=== PATIENT | female | born 1965 | race Hispanic/Latino ===

== ENCOUNTER → 2017-02-16 | Outpatient (CLI) | payer BC ==
--- NOTE | 2017-02-16 14:01 | Diagnostic Imaging Report ---
Bilateral screening mammogram 2D views with tomosynthesis The current study was also evaluated with a Computer Aided Detection (CAD) system. INDICATION: Screening. No current complaints stated on the questionnaire. COMPARISON: 02/12/2015. FINDINGS: The breasts are composed of heterogeneously dense parenchyma which may decrease mammographic sensitivity. Bilateral retropectoral implants are seen. There are punctate calcifications noted. Circumscribed oval asymmetry along the upper aspect of the left breast is again seen without change from 2013 suggestive of benign etiology. Tomographic views are suggestive of underlying fibroglandular tissue. Allowing for technique and positional differences, no suspicious change is seen. IMPRESSION: No significant change. ACR BI-RADS Category 2: Benign findings. Result letter will be mailed to the patient. Note: At least 10% of breast cancer is not imaged by mammography. Dictated on workstation # [id number]
== END ==
LOC: RAD 09:59
PROVIDERS: ATTEND Nurse Practitioner
DX: Z12.31 Encounter for screening mammogram for malignant neoplasm of breast (principal)
CPT/HCPCS: 77067

== ENCOUNTER 2017-10-22 05:58 | Outpatient (CLI) | payer BC ==
[~2017-10-22] VITALS: Ht 167.6 cm; Wt 90.7 kg
[2017-10-22] MEDS ORDERED: LEVO50TA6 PO (12:09)
== END 2017-10-22 12:13 | disposition home or self-care (01) ==
LOC: PREOP 05:58
PROVIDERS: ATTEND Surgery
DX: Z01.818 Encounter for other preprocedural examination (principal)

== ENCOUNTER → 2018-04-12 | Outpatient (CLI) | payer BC ==
[~2018-04-12] MED LIST: LEVO50TA6 PO
--- NOTE | 2018-04-12 15:46 | Diagnostic Imaging Report ---
INDICATION: Routine screening. COMPARISON: Prior mammogram from 02/16/2017 and 02/12/2015. EXAMINATION: 2D and 3D bilateral screening mammography was performed with CAD. The current study was also evaluated with a Computer Aided Detection (CAD) system. FINDINGS: Both breasts are heterogeneously dense, limiting the sensitivity of mammography. Bilateral breast implants are again noted. Implant contours appear to be stable. There are benign calcifications, bilaterally. Benign nodular densities in the upper left breast appear stable. No new mass or malignant appearing microcalcifications are seen. The axillae are unremarkable. IMPRESSION: No mammographic features suspicious for malignancy are identified. ACR BI-RADS Category 2: Benign findings. Result letter will be mailed to the patient. Note: At least 10% of breast cancer is not imaged by mammography. Dictated by: Dictated on workstation # [id number]
== END ==
LOC: RAD 13:19
PROVIDERS: ATTEND Nurse Practitioner
DX: Z12.31 Encounter for screening mammogram for malignant neoplasm of breast (principal)
CPT/HCPCS: 77067

== ENCOUNTER → 2019-04-10 | Outpatient (CLI) | payer BC ==
[2019-04-13 09:43] VITALS: BP 113/72
--- NOTE | 2019-04-13 09:43 | Cardiology Stress Test Report ---
Stress Test Report Date of Procedure/Referring: Date of Procedure: Apr 13, 2019 PCP Emily Gomez MD Admitting Physician Dominik Powell DO Indications: Palpitation Baseline Heart Rate: 69 Baseline Blood Pressure: Blood Pressure Systolic: 113 Blood Pressure Diastolic: 72 Baseline EKG: Baseline EKG: normal sinus rhythm Summary/Conclusion: Summary: In summary, the patient started exercising with a baseline heart rate, blood pressure and EKG mentioned above Patient was able to exercise for a total of 8 minutes on Arturo protocol, 9.5 METs Maximum heart rate 158 Maximum blood pressure 164/77 Stress EKG Minimal nondiagnostic changes Recovery EKG Return to baseline Conclusion: 1. Good exercise tolerance for a total of 8 minutes on Arturo protocol, 9.5 METs, achieving 95 percent of maximum expected heart rate 2. Minimal nondiagnostic EKG changes with exercise returned to baseline during recovery 3. No arrhythmia was noted EMILY GOMEZ MD Apr 13, 2019 09:43 POS
== END ==
LOC: CARD 12:07
PROVIDERS: ATTEND Internal Medicine Cardiovascular Disease
DX: R00.2 Palpitations (principal)
CPT/HCPCS: 93017; 93306

== ENCOUNTER → 2019-05-29 | Outpatient (CLI) | payer BC ==
--- NOTE | 2019-05-29 13:37 | Diagnostic Imaging Report ---
PROCEDURE: US left lower extremity venous. TECHNIQUE: Multiple real-time grayscale images were obtained over the left lower extremity in various projections. Additional duplex Doppler and color Doppler images were also obtained. INDICATION: Leg pain and swelling COMPARISON: There are no prior studies available for comparison. FINDINGS: Spectral color flow imaging of the deep venous system shows generally good blood flow and compressibility at all levels. There is no evidence for a deep venous thrombosis. IMPRESSION: There is no evidence for a deep thrombosis of the left lower extremity. Dictated by: Dictated on workstation # [id number]
== END ==
LOC: RAD 12:44
PROVIDERS: ATTEND Nurse Practitioner
DX: G57.10 Meralgia paresthetica, unspecified lower limb (principal); J30.89 Other allergic rhinitis; H93.13 Tinnitus, bilateral; E03.9 Hypothyroidism, unspecified; M79.89 Other specified soft tissue disorders

== ENCOUNTER → 2019-10-17 | Outpatient (CLI) | payer BC ==
--- NOTE | 2019-10-17 11:36 | Conscious Sedation/ASA ---
Conscious Sedation Pre-Proced Time 11:30 ASA Score 2 For ASA 3 and 4: Consider anesthesia and medical clearance. Also, for patients with a history of failed moderate sedation consider anesthesia. Airway Lungs Heart ASA score ASA 1: a normal healthy patient ASA 2: a patient with a mild systemic disease (mid diabetes, controlled hypertension, obesity ASA 3: a patient with a severe systemic disease that limits activity (angina, COPD, prior Myocardial infarction) ASA 4: a patient with an incapacitating disease that is a constant threat to life (CHF, renal failure) ASA 5: a moribund patient not expected to survive 24 hrs. (ruptured aneurysm) ASA 6: a declared brain- patient whose organs are being harvested. For emergent operations, add the letter E after the classification Mallampati Classification Grade 2 Sedation Plan Analgesia, Amnesia, Plan communicated to team members, Discussed options with patient/fam, Discussed risks with patient/fam The patient is an appropriate candidate to undergo the planned procedure, sedation, and anesthesia. The patient immediately re-assessed prior to indication. JOELLE BAINS MD Oct 17, 2019 11:36
--- NOTE | 2019-10-17 11:37 | Progress Note-Pre Operative ---
Pre-Operative Progress Note H&P Reviewed The H&P was reviewed, patient examined and no changes noted. Date Seen by Provider: Oct 17, 2019 Time Seen by Provider: 11: Date H&P Reviewed: Oct 17, 2019 Time H&P Reviewed: 11:30 Pre-Operative Diagnosis: screening o JOELLE BAINS MD Oct 17, 2019 11:37
--- NOTE | 2019-10-17 12:17 | Diagnostic Imaging Report ---
INDICATION: Routine screening. Comparison is made with prior mammogram 04/12/2018 and 02/16/2017. 2-D and 3-D bilateral screening mammography was performed with CAD. Bilateral subpectoral breast implants are noted. Implant contours are smooth. Breast parenchyma remains heterogeneously dense, limiting the sensitivity of mammography. There are benign calcifications. Nodular density superior left breast are stable. No new mass or malignant appearing microcalcifications are identified. Axillae are unremarkable. IMPRESSION: BI-RADS Category 2 No mammographic features suspicious for malignancy are identified. Dictated by: Dictated on workstation # [id number]
== END ==
LOC: RAD 10:02
PROVIDERS: ATTEND Surgery
DX: Z12.31 Encounter for screening mammogram for malignant neoplasm of breast (principal)
CPT/HCPCS: 77063; 77067

== ENCOUNTER 2019-12-07 21:54 | Emergency (ER) | payer BC ==
[~2019-12-07] VITALS: Ht 167.7 cm; Wt 90.7 kg
[2019-12-07] MEDS ORDERED: TRIAMCINOLONE ACET (KENALOG-40) 40 MG/ML 1 ML VIAL IM ONE (22:00)
[2019-12-07 22:04] VITALS: BP 144/81
--- NOTE | 2019-12-07 22:07 | ED Integumentary General ---
General Chief Complaint: Skin/Wound Problems Stated Complaint: POISION MATEUS Source: patient Exam Limitations: no limitations History of Present Illness Date Seen by Provider: Dec 07, 2019 Time Seen by Provider: 22:05 Initial Comments To ER with reports of suspected poison mateus. This began last week after doing some yard work and she was seen by a [facility] urgent care who comes to her work. She was given a steroid shot and a prescription for topical triamcinolone plus mupirocin ointment and Bactrim. However the rash seems to be spreading and she has been getting headaches. Timing/Duration: constant Severity: moderate Associated Symptoms: rash Allergies and Home Medications Allergies Coded Allergies: No Known Drug Allergies (Verified , 10/29/17) Home Medications Levothyroxine Sodium 50 Mcg Tablet, 50 MCG PO DAILY, (Reported) Patient Home Medication List Home Medication List Reviewed: Yes Review of Systems Review of Systems Constitutional: see HPI EENTM: see HPI Respiratory: no symptoms reported Cardiovascular: no symptoms reported Genitourinary: no symptoms reported Musculoskeletal: no symptoms reported Skin: no symptoms reported Psychiatric/Neurological: No Symptoms Reported Endocrine: No Symptoms Reported Past Jhfzeyh-Cjolzb-Clmbtd Hx Patient Social History Recent Foreign Travel: No Contact w/Someone Who Travel: No Recent Hopitalizations: No Seasonal Allergies Seasonal Allergies: Yes Past Medical History Surgeries: No Respiratory: No Cardiac: No Neurological: No Reproductive Disorders: No Sexually Transmitted Disease: No HIV/AIDS: No Genitourinary: No Musculoskeletal: Yes Chronic Back Pain Endocrine: Yes Hypothyroidsim HEENT: No Loss of Vision: Bilateral Hearing Impairment: Denies Cancer: No Adverse Reaction/Blood Tranf: No (N/A) Physical Exam Vital Signs Capillary Refill : General Appearance: WD/WN, no apparent distress, other (erythematous pruritic rash to the anterior portion of her body including the face, forearms, legs. The lower legs have some bullous lesions. Nothing posteriorly.) HEENT: PERRL/EOMI, normal ENT inspection Respiratory: no respiratory distress, no accessory muscle use Neurologic/Psychiatric: alert, normal mood/affect, oriented x 3 Skin: normal color, warm/dry Skin Problem Location: other Skin Problem Character: other Progress/Results/Core Measures Results/Orders My Orders Orders - MARTÍN GERARDO APRN Cbc With Automated Diff (12/07/19 21:56) Basic Metabolic Panel (12/07/19 21:56) Dexamethasone Injection (Decadron Inject (12/07/19 22:00) Triamcinolone Acetonide Im (Kenalog-40) (12/07/19 22:00) Departure Impression Primary Impression: Rhus dermatitis Disposition: 01 HOME, SELF-CARE Condition: Stable Departure-Patient Inst. Decision time for Depature: 22:07 Referrals: ANDREA BROWER DO (PCP/Family) Primary Care Physician Patient Instructions: NO INSTRUCTIONS GIVEN Add. Discharge Instructions: 1. Follow-up with your primary care provider later this week for recheck. Return to ER for any worsening. Continue current medication All discharge instructions reviewed with patient and/or family. Voiced understanding. MARTÍN GERARDO [employer] PROFESSIONAL Dec 07, 2019 22:07
[2019-12-07 22:17] LABS: BASOPHILS % (AUTO) 0 % (0-10); EOSINOPHILS # (AUTO) 1.3 10^3/uL (0.0-0.3); EOSINOPHILS % (AUTO) 10 % (0-10); HEMATOCRIT 43 % (35-52); HEMOGLOBIN 14.4 G/DL (11.5-16.0); LYMPHOCYTES # (AUTO) 3.3 X 10^3 (1.0-4.0); LYMPHOCYTES % (AUTO) 25 % (12-44); MEAN CORPUSCULAR HEMOGLOBIN 30 PG (25-34); MEAN CORPUSCULAR HGB CONC 33 G/DL (32-36); MEAN CORPUSCULAR VOLUME 91 FL (80-99); MEAN PLATELET VOLUME 10.8 FL (7.4-10.4); MONOCYTES # (AUTO) 1.1 X 10^3 (0.0-1.0); MONOCYTES % (AUTO) 8 % (0-12); NEUTROPHILS # (AUTO) 7.6 X 10^3 (1.8-7.8); NEUTROPHILS % (AUTO) 57 % (42-75); PLATELET COUNT 273 10^3/uL (130-400); RED CELL DISTRIBUTION WIDTH 13.9 % (10.0-14.5); WHITE BLOOD COUNT 13.2 10^3/uL (4.3-11.0)
[2019-12-07 22:27] LABS: POTASSIUM 3.8 MMOL/L (3.6-5.0)
[2019-12-07 22:28] LABS: CALCIUM 9.3 MG/DL (8.5-10.1)
[2019-12-07 22:33] LABS: CREATININE SERUM 0.98 MG/DL (0.60-1.30)
== END 2019-12-07 22:42 | disposition home or self-care (01) ==
LOC: EDUNIT# 21:54 → ER 21:55
DX: L23.7 Allergic contact dermatitis due to plants, except food (principal); E03.9 Hypothyroidism, unspecified; M54.9 Dorsalgia, unspecified; G89.29 Other chronic pain; Z79.890 Hormone replacement therapy
CPT/HCPCS: 36415; 80048; 85025

== ENCOUNTER → 2020-10-22 | Outpatient (CLI) | payer BC, OTHER ==
--- NOTE | 2020-10-22 13:13 | Diagnostic Imaging Report ---
INDICATION: Routine screening. COMPARISON is made with prior mammograms 10/17/2019 and 04/12/2018. 2-D and 3-D bilateral screening mammography was performed with CAD. Bilateral subpectoral breast implants are noted. Implant contours are smooth. Both breasts are heterogeneously dense, limiting the sensitivity of mammography. Scattered benign calcifications are noted bilaterally. Circumscribed nodule in the upper left breast is stable. No spiculated mass or malignant appearing microcalcifications are seen. Axillae are unremarkable. IMPRESSION: BI-RADS Category 2 No mammographic features suspicious for malignancy are identified. ACR BI-RADS Category 2: Benign findings. Result letter will be mailed to the patient. Note: At least 10% of breast cancer is not imaged by mammography. Dictated by: Dictated on workstation # [id number]
== END ==
LOC: RAD 11:15
PROVIDERS: ATTEND Surgery
DX: Z12.31 Encounter for screening mammogram for malignant neoplasm of breast (principal)
CPT/HCPCS: 77063; 77067

== ENCOUNTER → 2021-12-02 | Outpatient (CLI) | payer OTHER ==
--- NOTE | 2021-12-02 15:02 | Diagnostic Imaging Report ---
PROCEDURE: US Thyroid. TECHNIQUE: Multiple real-time grayscale images were obtained of the thyroid in various projections. INDICATION: Enlarged thyroid COMPARISON: None FINDINGS: Right thyroid lobe: Size (cm): 4.4 x 1.6 x 1.5 Echotexture: Mildly heterogeneous Vascularity: Normal Nodules: In the mid right thyroid there is a solid isoechoic circumscribed nodule measuring 1 cm (TI-RADS 3). Isthmus: Size (cm): 0.4 Nodules: None Left thyroid lobe: Size (cm): 4.2 x 1.5 x 1.2 Echotexture: Mildly heterogeneous Vascularity: Normal Nodules: None Impression: 1. 1 cm nodule in the right thyroid does not qualify for followup based on TI-RADS criteria. Dictated by: Dictated on workstation # [id number]
--- NOTE | 2021-12-05 09:25 | Diagnostic Imaging Report ---
INDICATION: Routine screening. Comparison is made with prior mammogram 10/22/2020 and 10/17/2019. 2-D and 3-D bilateral screening mammography was performed with CAD. Bilateral subpectoral breast implants are noted. Implant contours are smooth. No definite extracapsular rupture is seen. Both breasts are heterogeneously dense, limiting the sensitivity of mammography. Benign calcifications appears stable. Circumscribed nodule in the upper left breast appears stable. No discrete mass or malignant-appearing microcalcifications are seen. Axillae are unremarkable. IMPRESSION: No mammographic features suspicious for malignancy are identified. ACR BI-RADS Category 2: Benign findings. Result letter will be mailed to the patient. Note: At least 10% of breast cancer is not imaged by mammography. BI-RADS Category 2 Dictated by: Dictated on workstation # [id number]
== END ==
LOC: RAD 13:15
PROVIDERS: ATTEND Surgery
DX: Z12.31 Encounter for screening mammogram for malignant neoplasm of breast (principal); E04.2 Nontoxic multinodular goiter
CPT/HCPCS: 76536; 77063; 77067

== ENCOUNTER → 2022-01-13 | Outpatient (CLI) | payer SELFPAY ==
--- NOTE | 2022-01-13 14:54 | Diagnostic Imaging Report ---
CLINICAL HISTORY: Hyperlipidemia. Screening. COMPARISON: None. TECHNIQUE: Non-contrast enhanced EKG-gated axial images were obtained with a coned down field of view to assess for coronary calcium. Post processing of the images was performed on an independent work station. CTDI volume 4.29 mGy DLP 90.6 mGy*cm FINDINGS: Important Information About Your Scan: The following information is based on an analysis of the coronary arteries only. Calcium deposits do not correspond directly to the percentage of narrowing of the arteries. They do correlated directly to the amount of coronary plaque, and to the risk of future coronary disease. The calcium deposits usually begin to form years before any symptoms develop. Early detection and modification of risk factors, such as smoking and cholesterol intake, can slow the progress of coronary artery disease. A low score suggests a low likelihood of coronary artery disease, but does not exclude the possibility of significant coronary artery narrowing. The results should be discussed with your physician, taking into account other risk factors such as age, gender, family history, diabetes, smoking or high cholesterol levels. Should you ever experience chest pain, difficulty breathing, discomfort radiating into your neck or arm, or discomfort combined with lightheadedness, sweating, fainting or nausea, you should seek prompt medical attention. Calcium Score: Agatston units 0 - 0: No identifiable atherosclerotic plaque 1 - 10: Minimal plaque burden 11 - 100: Mild plaque burden 101 - 400: Moderate plaque burden Greater than 401: Extensive plaque burden. Score Summary: Your total calcium score is 0 Agatston units. Ranking Guide: Your score of 0 Agatston units places you in the 1st percentile rank. That means out of a group of people with same gender and similar age as yourself 99 percent will have a higher calcium score than you, as reported in literature. CORONARY AJ-130 Left Main artery (LMA) 0 Left Anterior Descending (LAD) 0 Left Circumflex (LCX) 0 Right Coronary Artery (RCA) 0 Posterior Descending Artery (PDA) 0 Total 0 Agatston units The visualized portions of the lungs demonstrate no focal nodules or masses. There are no pleural or pericardial effusions. The visualized osseous structures are age appropriate. IMPRESSION: 1. CT coronary calcium score is 0 Agatston units 2. Adoption and maintenance of a healthy lifestyle is recommended for all people. This includes regular appropriate exercise and observance of a proper diet, to ensure balanced nutrition and weight control. 3. Tobacco use should be avoided. 4. Hypercholesterolemia has been linked to coronary atherosclerosis. Ensure strict adherence to NCEP (National Cholesterol Education Panel) cholesterol-lowering guidelines. For primary prevention, these include a target goal for total cholesterol of less than 200 mg/dL, HDL cholesterol of greater than 40 mg/dL, triglycerides of less than 200 mg/dL and LDL cholesterol of less than 100 mg/dL Secondary prevention involves more stringent goals. However, please note that these are general recommendations and as with all such matters, the personal family physician should be consulted regarding recommendations appropriate for the individual. Recommend evaluation and treatment for all the other cardiovascular risk factors. Dictated by: Dictated on workstation # [id number]
== END ==
LOC: RAD FS 11:23
PROVIDERS: ATTEND Family Medicine
DX: E78.5 Hyperlipidemia, unspecified (principal); E78.00 Pure hypercholesterolemia, unspecified
CPT/HCPCS: 75571

== ENCOUNTER → 2022-12-22 | Outpatient (CLI) | payer BC ==
--- NOTE | 2022-12-22 15:50 | Diagnostic Imaging Report ---
PROCEDURE: US Thyroid. TECHNIQUE: Multiple real-time grayscale images were obtained of the thyroid in various projections. INDICATION: Follow-up right thyroid nodule COMPARISON: 12/02/2021 FINDINGS: Right thyroid lobe: Size (cm): 5.2 x 1.8 x 1.7 Echotexture: Mildly heterogeneous Vascularity: Mildly increased Nodules: There is an isoechoic mostly solid 1 cm nodule in the right mid thyroid. Isthmus: Size (cm): 0.4 Nodules: There is a hypoechoic solid nodule measuring 5 mm. Left thyroid lobe: Size (cm): 4.7 x 1.6 x 1.4 Echotexture: Mildly heterogeneous Vascularity: Mildly increased Nodules: There is an isoechoic solid nodule in the superior left thyroid measuring 7 mm. Impression: 1. Bilateral thyroid nodules, which appear stable and do not qualify for follow-up based on TI-RADS criteria. 2. Mildly heterogeneous and hypervascular thyroid, can be seen with thyroiditis. Dictated by: Dictated on workstation # [id number]
--- NOTE | 2022-12-22 17:03 | Diagnostic Imaging Report ---
INDICATION: Routine screening. COMPARISON is made with prior mammograms from 12/02/2021 and 10/22/2020. 2-D and 3-D bilateral screening mammography was performed with CAD. Bilateral subpectoral breast implants are noted. Implant contours remain smooth without evidence of extracapsular rupture. Both breasts remain heterogeneously dense, limiting the sensitivity of mammography. Density in the medial right breast posterior depth appears stable. Nodular densities in the superior left breast are stable. No new mass or malignant-appearing microcalcifications are seen. Axillae are unremarkable. IMPRESSION: BI-RADS Category 2 No mammographic features suspicious for malignancy are identified. ACR BI-RADS Category 2: Benign findings. Result letter will be mailed to the patient. Note: At least 10% of breast cancer is not imaged by mammography. Dictated by: Dictated on workstation # [id number]
== END ==
LOC: RAD 10:55
PROVIDERS: ATTEND Nurse Practitioner
DX: Z12.31 Encounter for screening mammogram for malignant neoplasm of breast (principal); E04.2 Nontoxic multinodular goiter; E06.9 Thyroiditis, unspecified; E07.89 Other specified disorders of thyroid
CPT/HCPCS: 76536; 77063; 77067